=== PATIENT | male | born 1990 | race Caucasian/White ===

== ENCOUNTER 2018-01-23 20:04 | Emergency (ER) | payer BC ==
[~2018-01-23] VITALS: Ht 182.9 cm; Wt 100.0 kg
[~2018-01-23 20:04] MED LIST: BACTROBAN2 % EX; CEPHALEXIN500 MG OR; ERYTHROMYCIN O3.5 GM OU; GENTAK0.3 % OP; GENTAMICIN SULF5 ML OP; LORTAB5 OR; NO HOME MEDS; SOD SULFACET OP
[2018-01-23 20:47] VITALS: BP 148/87
== END 2018-01-23 20:50 | disposition home or self-care (01) | DRG 305 ==
LOC: ED 20:04
DX: I10 Essential (primary) hypertension (principal)